=== PATIENT | male | born 1995 | race Caucasian/White ===

== ENCOUNTER 2021-12-29 09:53 | Emergency (ER) | payer SELFPAY ==
[~2021-12-29] VITALS: Ht 177.8 cm; Wt 88.5 kg
--- NOTE | 2021-12-29 10:22 | NUR ---
DR SEWELL AT BEDSIDE FOR EVAL. URINE SPECIMEN SENT TO LAB.
[2021-12-29 10:26] LABS: *BILIRUBIN,URIN 2+ (NEGATIVE); *BLOOD, URINE 3+ (NEGATIVE); *CLARITY,URINE CLEAR (CLEAR); *COLOR,URINE YELLOW (YELLOW); *KETONES,URINE 4+ (NEGATIVE); LEUKOCYTE ESTERASE ,URINE NEGATIVE (NEGATIVE); NITRITE, URINE NEGATIVE (NEGATIVE); UGLUCOSE NEGATIVE (NEGATIVE)
[2021-12-29 10:27] LABS: MEAN CORPUSCULAR HEMOGLOBIN 31.9 uug (23.8-33.4); MEAN CORPUSCULAR VOLUME 92.3 fL (73.0-96.2); PLATELET COUNT (AUTO) 217 K/uL (152-348)
[2021-12-29 10:35] LABS: POTASSIUM 3.9 mmol/L (3.5-5.1)
[2021-12-29 13:24] LABS: BACTERIA,URINE NONE SEEN /HPF (NONE SEEN); RBC,URINE 20-50 /HPF (0-3); SQUAMOUS EPITHELIAL CELL,UR NONE SEEN /HPF (NONE SEEN); URINE AMORPHOUS URATE MANY /HPF; WBC,URINE 0-3 /HPF (0-3)
[2021-12-29 13:37] VITALS: BP 107/70
[2021-12-30] MEDS ORDERED: ONDA4TAB5 PO (20:14)
[2021-12-30] MEDS ORDERED: HYDR-3980 PO (20:14)
== END 2021-12-29 10:30 | disposition home or self-care (01) ==
LOC: ER 09:53
DX: R10.9 Unspecified abdominal pain (principal); Z87.442 Personal history of urinary calculi; N28.1 Cyst of kidney, acquired
CPT/HCPCS: 36415; 85025; A4663

== ENCOUNTER 2021-12-30 18:16 | Emergency (ER) | payer MEDICAID ==
[~2021-12-30] VITALS: Ht 177.8 cm; Wt 87.5 kg
[2021-12-30] MEDS: HYDROMORPHONE 1 MG/1 ML DISP.SYRIN IV ONE ×2 (18:50→20:19)
[2021-12-30] MEDS: IV NORMAL SALINE 1000 ML BAG IV ONE (18:50)
[2021-12-30] MEDS: ONDANSETRON 4 MG/2 ML VIAL IV ONE (18:51)
[2021-12-30 18:52] LABS: HEMATOCRIT 44.2 % (36.7-47.1); MEAN CORPUSCULAR HEMOGLOBIN 31.3 uug (23.8-33.4); MEAN CORPUSCULAR VOLUME 91.8 fL (73.0-96.2); PLATELET COUNT (AUTO) 239 K/uL (152-348)
[2021-12-30] MEDS: KETOROLAC TROMETHAMINE 30 MG INJ IVP ONE (18:52)
[2021-12-30] MEDS ORDERED: HYDROMORPHONE 1 MG/1 ML DISP.SYRIN ONE ×2 (18:52→20:25)
[2021-12-30] MEDS ORDERED: KETOROLAC TROMETHAMINE 30 MG INJ ONE (18:52)
[2021-12-30] MEDS ORDERED: ONDANSETRON 4 MG/2 ML VIAL ONE (18:53)
--- NOTE | 2021-12-30 18:53 | NUR ---
PT IS IN ROOM #2B. DR REYES EVALUATED THE PT.
[2021-12-30 19:02] LABS: CREATININE 1.3 mg/dL (0.6-1.3); POTASSIUM 3.7 mmol/L (3.5-5.1)
[2021-12-30 19:07] LABS: BILIRUBIN,DIRECT 0.2 mg/dL (0.0-0.2); BILIRUBIN,TOTAL 0.6 mg/dL (0.2-1.0); TOTAL PROTEIN, SERUM 8.3 g/dL (6.4-8.2)
[2021-12-30] MEDS ORDERED: ONDA4TAB5 PO (20:14)
[2021-12-30] MEDS ORDERED: HYDR-3980 PO (20:14)
--- NOTE | 2021-12-30 20:23 | NUR ---
assumed care at shift change, pt found alert and oriented resting in bed, with full and unlabored breathing, on room air. pt is undergoing U/S of the Right Flank, pt tolerating procedure well. IV saline locked in the Left Antecubital and monitoring equipment is on pt and functioning. pt c/o pain to flank area. MD made aware. pt vitals stable, NAD noted
--- NOTE | 2021-12-30 20:32 | NUR ---
pt medicated per MD order, reports moderate relief of symptoms. pt cleared for D/C by MD. ACI explained by MD at bedside in great detail, MD explained pts findings, actions to take going forward, and expected progression of treatment, and S/S to watch for that would require immediate medical intervention this education also provided in written form. RN reiterated MDs instructions and offered to answer any addtional questions, of which the pt stated he had none and was able to verbalise understanding. IV D/C'd intact, wound dressed. pt ambulated out of the dept in stable condition under his own power. Vital signs stable, NAD stable.
[2021-12-30 20:38] VITALS: BP 137/69
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
== END 2021-12-30 20:23 | disposition home or self-care (01) ==
LOC: ER 18:18
DX: R10.31 Right lower quadrant pain (principal); N23 Unspecified renal colic; N13.30 Unspecified hydronephrosis; N28.1 Cyst of kidney, acquired
CPT/HCPCS: 36415; 76770; 80048; 80076; 83690; 85025; 85730; 96361; 96374; 96375; 96376; 99284; J1170 ×2; J1885; J2405; A4663; J7030